=== PATIENT | male | born 1980 | race American Indian/Alaskan Native ===

== ENCOUNTER 2023-03-04 10:51 | Emergency (ER) | payer SELFPAY ==
[2023-03-04 12:30] LABS: BASOPHILS PERCENT AUTO 0.7 % (0.0-1.5); EOSINOPHILS ABSOLUTE AUTO 0.2 K/uL (0.0-0.7); EOSINOPHILS PERCENT AUTO 2.8 % (0.0-7.0); HEMATOCRIT 39.8 % (38.0-50.0); HEMOGLOBIN 12.8 g/dL (13.0-17.0); LYMPHOCYTES ABSOLUTE AUTO 1.3 K/uL (0.6-2.4); LYMPHOCYTES PERCENT AUTO 20.6 % (16.0-40.0); MEAN CORPUSCULAR HEMOGLOBIN 28.6 pg (27.0-32.0); MEAN CORPUSCULAR HGB CONC 32.2 g/dL (31.0-37.0); MONOCYTES ABSOLUTE AUTO 0.4 K/uL (0.0-0.8); NEUTROPHILS ABSOLUTE AUTO 4.2 K/uL (1.4-5.7); NEUTROPHILS PERCENT AUTO 68.9 % (48.0-80.0); NRBC ABSOLUTE 0 K/uL; PLATELET COUNT,PLT 186 K/uL (150-400); RED BLOOD CELL COUNT 4.47 M/uL (4.50-5.90); WHITE BLOOD CELL COUNT,WBC 6.11 K/uL (4.0-11.0)
[2023-03-04 13:01] LABS: CALCIUM 7.8 mg/dL (8.5-10.1); CARBON DIOXIDE,CO2 22.6 mmol/L (21.0-32.0); CREATININE 3.1 mg/dL (0.8-1.3); EST CRCL DRUG DOSING (CG) 32.71 mL/min; POTASSIUM,K 4.9 mmol/L (3.5-5.1)
[2023-03-04] MEDS ORDERED: amLODIPine 5 MG Tab PO STA (14:04)
[2023-03-04] MEDS ORDERED: amLODIPine 5 MG Tab PO ONE (14:04)
== END 2023-03-04 14:09 | disposition home or self-care (01) ==
LOC: MW.ED 10:51
DX: I16.0 Hypertensive urgency (principal); N28.9 Disorder of kidney and ureter, unspecified; E11.9 Type 2 diabetes mellitus without complications; Z86.16 Personal history of COVID-19; Z87.891 Personal history of nicotine dependence; Z79.84 Long term (current) use of oral hypoglycemic drugs; Z79.899 Other long term (current) drug therapy
CPT/HCPCS: 36415; 80048; 85025; 99283; A9270